=== PATIENT | female | born 1950 | race Caucasian/White ===

== ENCOUNTER 2022-05-23 15:17 | Emergency (ER) | payer OTHER ==
--- OUTSIDE RECORDS SUMMARY | 2022-05-23 16:39 | XMS REPORT | Continuity of Care Document ---
:1950 Author Organization [facility] t Address [address] [place] [address] Care Team Providers Name Role Phone AbdullahiEve Attending Clinician Unavailable Fidencio Riddle Attending Clinician Thomas Alexander Attending Clinician Unavailable Physician, No Primary or Family Admitting Clinician Unavaila [facility] Payers Payer Name Policy Type Policy Number Effective Date Expiration Date S gee [facility] [employer]Select 1 [id number] 2020 Common TRS/ERS MCR PPO 00:00:00 [facility] - [facility] MEDICARE NOVITAS MB [id number] [facility] MEDICARE NOVITAS MB [id number] [facility] MEDICARE NOVITAS MB [id number] [facility] Problems Condition Condition Condition Status Onset Resolution Last Treating Co mments Source Name Details Category Date Date Treatment Clinician Date [id number] Osteopenia Problem Co mmon of neck of Spirit left [facility] [id number] Pure Problem Common hyperchole Spirit sterolemia - [facility] [id number] Alcoholism Problem Comm on [facility] - [facility] [id number] Primary Problem Common osteoarthr Spirit itis of - [facility] hand [id number] Anxiety Problem [facility] - [facility] [id number] Essential Problem Comm on hypertensi Spirit on - [facility] [id number] Glaucoma Problem Commo n of both Spirit eyes, - [facility] unspecifie d glaucoma [facility] [id number] +5th digit Problem Co mmon eff Spirit 04/02/20*GE - [facility] Hyperlipid Problem Active 2021-12-19 M emoria emia Hyperlipid 03:38:06 l (disorder) emia Daniel n (disorder) Active Problem 12/19/2021 [facility] Hypertensi Hypertens Problem Active 2021-12-19 Memoria ve jesusita 03:38:06 l disorder, disorder, Herm gary systemic systemic arterial arterial (disorder) (disorder) Active Problem 12/19/2021 [facility] 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 l 03:38:06 l (disorder) gammopathy He rmann (disorder) Active Problem 12/19/2021 [facility] Paresthesi Paresthes Problem Active 2021-12-19 Memoria a ia 03:38:06 l (finding) (finding) Herm gary Active Problem 12/19/2021 [facility] Peripheral Periphera Problem Active 2021-12-19 Memoria nerve l nerve 03:38:06 l disease disease Donta (disorder) (disorder) Active Problem 12/19/2021 [facility] Allergies, Adverse Reactions, Alerts Allergy Allergy Status Severity Reaction(s) Onset Inactive Treating Comm ents Source Name Type Date Date Clinician No Known DA Active U 2015-07 [facility]04 [place] [facility] No Known DA Active U 2015-07 [facility]ie 07-04 [facility] 00:[facility]: [facility] Social History Social Habit Start Date Stop Date Quantity Comments Source History of Tobacco [facility] - Use [facility] Sex Assigned At [facility] Social History 2019-03-26 2019-03-26 Rogerio ricketts 16:22:59 16:22:59 Smoking Status Start Date Stop Date Source Never Smoker [facility] Medications Ordered Filled Start Stop Current Ordering Indication Dosage Frequency Signature Comments Components Source Medication Medication Date Date Medication? Clinician (SIG) Name Name gabapentin Yes See Memoria 300 mg oral 6-16 Instructio l capsule 16:28: ns, TAKE 1 Herm gary 00 CAPSULE BY MOUTH AT BEDTIME FOR 30 DAYS *MAY IMPAIR ALERTNESS* *, # 30 cap, 11 Refill(s), [facility]: [facility], 167.64, cm, 12/16/21 11:17:00 CDT, Height, 67.273, kg, 12/16/21 11:17:00 CDT, Weight Metoprolol Metoprolol 2020-07 No 1{table QD Metoprolol Succinate Succinate 1-03 t} Succinate ER 25 MG ER 25 MG 00:00: ER 25 MG 00 Metoprolol Metoprolol 2020-07 No 1{table QD Metoprolol Succinate Succinate 1-03 t} Succinate ER 25 MG ER 25 MG 00:00: ER 25 MG 00 Metoprolol Metoprolol 2020-07 No 1{table QD Metoprolol Succinate Succinate 1-03 t} Succinate ER 25 MG ER 25 MG 00:00: ER 25 MG 00 Metoprolol Metoprolol 2020-07 No 1{table QD Metoprolol Succinate Succinate 1-03 t} Succinate ER 25 MG ER 25 MG 00:00: ER 25 MG 00 Depo-Medrol Depo-Medrol 2020-07 No 40mg Common (Methylpred (Methylpred 0-05 S pirit nisolone) nisolone) 00:00: - C HI 40mg 40mg [facility] Bupivicaine Bupivicaine 2020-07 No 2.5mg Common Brule Brule 0-05 Spirit 00:00: - [facility] Depo-Medrol Depo-Medrol 2020-07 No 40mg Common (Methylpred (Methylpred 0-05 S pirit nisolone) nisolone) 00:00: - C HI 40mg 40mg 00 [facility] Bupivicaine Bupivicaine 2020-07 No 2.5mg Common Brule Brule 0-05 Spirit 00:00: - [facility] Depo-Medrol Depo-Medrol 2020-07 No 40mg Common (Methylpred (Methylpred 0-05 S pirit nisolone) nisolone) 00:00: - C HI 40mg 40mg 00 [facility] Bupivicaine Bupivicaine 2020-07 No Common Brule Brule 0-05 Spirit 00:00: - [facility] Depo-Medrol Depo-Medrol 2020-07 No 40mg Common (Methylpred (Methylpred 0-05 S pirit nisolone) nisolone) 00:00: - C HI 40mg 40mg 00 [facility] Bupivicaine Bupivicaine 2020-07 No Common Brule Brule 0-05 Spirit 00:00: - [facility] Depo-Medrol Depo-Medrol 2020-07 No 40mg Common (Methylpred (Methylpred 0-05 S pirit nisolone) nisolone) 00:00: - C HI 40mg 40mg 00 [facility] Bupivicaine Bupivicaine 2020-07 No 2.5mg Common Brule Brule 0-05 Spirit 00:00: - [facility] Depo-Medrol Depo-Medrol 2020-07 No 40mg Common (Methylpred (Methylpred 0-05 S pirit nisolone) nisolone) 00:00: - C HI 40mg 40mg 00 [facility] Bupivicaine Bupivicaine 2020-07 No 2.5mg Common Brule Brule 0-05 Spirit 00:00: - [facility] Lidocaine Lidocaine 2020-0 No 10mg Com 11-05 Spirit 00:00: - [facility] Depo-Medrol Depo-Medrol No 40mg Common (Methylpred (Methylpred 5-06 S pirit nisolone) nisolone) 00:00: - C HI 40mg 40mg 00 [facility] Lidocaine Lidocaine 2020-0 No 10mg Com 11-05 Spirit 00:00: - [facility] Depo-Medrol Depo-Medrol No 40mg Common (Methylpred (Methylpred 5-06 S pirit nisolone) nisolone) 00:00: - C HI 40mg 40mg 00 [facility] Lidocaine Lidocaine 2020-0 No 10mg Com 11-05 Spirit 00:00: - [facility] Depo-Medrol Depo-Medrol 2020-0 No 40mg Common (Methylpred (Methylpred 5-06 S pirit nisolone) nisolone) 00:00: - C HI 40mg 40mg 00 [facility] Lidocaine Lidocaine 2020-0 No 10mg Com 11-05 Spirit 00:00: - [facility] Depo-Medrol Depo-Medrol 2020-0 No 40mg Common (Methylpred (Methylpred 5-06 S pirit nisolone) nisolone) 00:00: - C HI 40mg 40mg 00 [facility] Lidocaine Lidocaine 2020-0 No 10mg Com 11-05 Spirit 00:00: - [facility] Depo-Medrol Depo-Medrol 2020-0 No 40mg Common (Methylpred (Methylpred 5-06 S pirit nisolone) nisolone) 00:00: - C HI 40mg 40mg 00 [facility] Lidocaine Lidocaine 2020-0 No 10mg Com 11-05 Spirit 00:00: - [facility] Depo-Medrol Depo-Medrol 2020-0 No 40mg Common (Methylpred (Methylpred 5-06 S pirit nisolone) nisolone) 00:00: - C HI 40mg 40mg 00 [facility] gabapentin 2018-07 Yes 300 mg = 1 M emoria 300 MG Oral 1-12 cap, PO, l Capsule 15:32: Bedtime, # Herm gary 00 30 cap, 2 Refill(s), Pharmacy: [facility] gabapentin 2018-07 Yes 400 mg = 1 M emoria 400 MG Oral 0-31 cap, PO, l Capsule 22:51: Bedtime, # Herm gary 00 30 cap, 3 Refill(s), Pharmacy: [facility] gabapentin Yes 300 mg = 1 M emoria 300 MG Oral 9-24 cap, PO, l Capsule 16:52: Bedtime, # Herm gary 00 30 cap, 3 Refill(s), [facility]: [facility] venlafaxine 2019- Yes 75 mg = 1 M emoria 75 mg oral 24 cap, PO, l capsule, 16:26: Daily, # Debbie nn extended 00 30 cap, 0 release Refill(s) metoprolol 2019 Yes 25 mg = 1 Me moria 25 mg oral -24 tab, PO, l tablet, 16:26: Daily, # Daniel n extended 00 30 tab, 0 release Refill(s) metoprolol Yes 100 mg = 1 M emoria succinate 03-26 cap, PO, l 100 mg oral 16:26: Daily, 0 He rmann capsule, 00 Refill(s) extended release atorvastati Yes 60 mg, PO, Memoria n 03-26 Daily, 0 l 16:26: Refill(s) telmisartan 2019-0 Yes PO, Daily, Memoria 24 0 l 16:26: Refill(s) Amlodipine Yes 1 tab, PO, M emoria 5 MG / 03-26 Bedtime, # l atorvastati 16:26: 30 tab, 0 H ermann n 10 MG 00 Refill(s) Oral Tablet multivitami 2018-0 Yes Daily, 0 Me moria n 03-26 Refill(s) l 16:26: Cod Liver 2019-0 Yes PO, Daily, Me moria Oil 03-26 0 l 16:26: Refill(s) B-12 0 Yes 0 Memoria 03-26 Refill(s) l 16:26: Calcium 2019-0 Yes 1 tab, PO, [place] yohannes Carbonate 03-26 TID, # 90 l 1500 MG / 16:26: tab, 0 Daniel n Cholecalcif 00 Refill(s) angel 200 UNT Oral Tablet cinnamon 0 Yes 1,000 mg = Mem oria 500 mg oral 03-26 2 cap, PO, l capsule 16:26: BID, # 100 Herm gary 00 cap, 0 Refill(s) magnesium 2019-0 Yes PO, 0 Memoria amino acid 03-26 Refill(s) l chelate 16:26: Donta 00 omeprazole 2019- Yes 40 mg = 1 Me moria 40 mg oral 9-24 cap, PO, l delayed 16:26: Daily, # Daniel n release 00 30 cap, 0 capsule Refill(s) Travatan Z Travatan Z No 1{drop_ QD Travatan Z 0.004 % 0.004 % into_af 0.004 % fected_ eye_in_ the_eve monica} Metoprolol Metoprolol No Metoprolol Succinate Succinate Succinate ER 25 MG ER 25 MG ER 25 MG Famotidine Famotidine No Famotidine Famotidine Famotidine No Famotidine Telmisartan Telmisartan No 1{table QD Telmisarta -HCTZ -HCTZ t} n-HCTZ 40-12.5 MG 40-12.5 MG 40-12.5 MG Magnesium Magnesium No 1{capsu TID Magnesium 100 MG 100 MG le} 100 MG Gabapentin Gabapentin No 1{capsu Gabapentin 300 MG 300 MG le} 300 MG Atorvastati Atorvastati No Atorvastat n Calcium n Calcium in Calcium 40 MG 40 MG 40 MG Metoprolol Metoprolol No Metoprolol Succinate Succinate Succinate ER 25 MG ER 25 MG ER 25 MG amLODIPine amLODIPine No 1{table QD amLODIPine Besylate 5 Besylate 5 t} Besylate 5 MG MG MG Potassium Potassium No 1{table QD Potassium 99 MG 99 MG t} 99 MG Travatan Z Travatan Z No 1{drop_ QD Travatan Z 0.004 % 0.004 % into_af 0.004 % fected_ eye_in_ the_eve mon[place]} Meloxicam Meloxicam No Meloxicam Voltaren Voltaren No Voltaren Venlafaxine Venlafaxine No 1{capsu QD Venlafaxin HCl ER 75 HCl ER 75 le_with e HCl ER MG MG _food} 75 MG Omeprazole Omeprazole No QD Omeprazole 40 MG 40 MG 40 MG Telmisartan Telmisartan No 1{table QD Telmisarta -HCTZ -HCTZ t} n-HCTZ 40-12.5 MG 40-12.5 MG 40-12.5 MG Atorvastati Atorvastati No Atorvastat n Calcium n Calcium in Calcium 40 MG 40 MG 40 MG amLODIPine amLODIPine No amLODIPine Besylate 5 Besylate 5 Besylate 5 MG MG MG Voltaren Voltaren No Voltaren Famotidine Famotidine No Famotidine Magnesium Magnesium No 1{capsu TID Magnesium 100 MG 100 MG le} 100 MG Potassium Potassium No 1{table QD Potassium 99 MG 99 MG t} 99 MG Omeprazole Omeprazole No QD Omeprazole 40 MG 40 MG 40 MG Travatan Z Travatan Z No 1{drop_ QD Travatan Z 0.004 % 0.004 % into_af 0.004 % fected_ eye_in_ the_eve [place]} Gabapentin Gabapentin No 1{capsu Gabapentin 300 MG 300 MG le} 300 MG Meloxicam Meloxicam No Meloxicam Metoprolol Metoprolol No 1{table QD Metoprolol Succinate Succinate t} Succinate ER 100 MG ER 100 MG ER 100 MG Venlafaxine Venlafaxine No 1{capsu QD Venlafaxin HCl ER 75 HCl ER 75 le_with e HCl ER MG MG _food} 75 MG Telmisartan Telmisartan No 1{table QD Telmisarta -HCTZ -HCTZ t} n-HCTZ 40-12.5 MG 40-12.5 MG 40-12.5 MG Voltaren Voltaren No Voltaren Famotidine Famotidine No Famotidine amLODIPine amLODIPine No amLODIPine Besylate 5 Besylate 5 Besylate 5 MG MG MG Meloxicam Meloxicam No Meloxicam Magnesium Magnesium No 1{capsu TID Magnesium 100 MG 100 MG le} 100 MG Potassium Potassium No 1{table QD Potassium 99 MG 99 MG t} 99 MG Omeprazole Omeprazole No QD Omeprazole 40 MG 40 MG 40 MG Gabapentin Gabapentin No 1{capsu Gabapentin 300 MG 300 MG le} 300 MG Atorvastati Atorvastati No Atorvastat n Calcium n Calcium in Calcium 20 MG 20 MG 20 MG Venlafaxine Venlafaxine No Venlafaxin HCl ER 75 HCl ER 75 e HCl ER MG MG 75 MG Metoprolol Metoprolol No 1{table QD Metoprolol Succinate Succinate t} Succinate ER 100 MG ER 100 MG ER 100 MG Travatan Z Travatan Z No 1{drop_ QD Travatan Z 0.004 % 0.004 % into_af 0.004 % fected_ eye_in_ the_eve mon[place]} Telmisartan Telmisartan No 1{table QD Telmisarta -HCTZ -HCTZ t} n-HCTZ 40-12.5 MG 40-12.5 MG 40-12.5 MG Famotidine Famotidine No Famotidine Meloxicam Meloxicam No Meloxicam Atorvastati Atorvastati No Atorvastat n Calcium n Calcium in Calcium 40 MG 40 MG 40 MG amLODIPine amLODIPine No amLODIPine Besylate 5 Besylate 5 Besylate 5 MG MG MG Magnesium Magnesium No 1{capsu TID Magnesium 100 MG 100 MG le} 100 MG Potassium Potassium No 1{table QD Potassium 99 MG 99 MG t} 99 MG Voltaren Voltaren No Voltaren Travatan Z Travatan Z No 1{drop_ QD Travatan Z 0.004 % 0.004 % into_af 0.004 % fected_ eye_in_ the_eve [place]} Gabapentin Gabapentin No 1{capsu Gabapentin 300 MG 300 MG le} 300 MG Venlafaxine Venlafaxine No Venlafaxin HCl ER 75 HCl ER 75 e HCl ER MG MG 75 MG Omeprazole Omeprazole No QD Omeprazole 40 MG 40 MG 40 MG Metoprolol Metoprolol No Metoprolol Succinate Succinate Succinate ER 100 MG ER 100 MG ER 100 MG amLODIPine amLODIPine No amLODIPine Besylate 5 Besylate 5 Besylate 5 MG MG MG Famotidine Famotidine No Famotidine Venlafaxine Venlafaxine No Venlafaxin HCl ER 75 HCl ER 75 e HCl ER MG MG 75 MG Gabapentin Gabapentin No 1{capsu Gabapentin 300 MG 300 MG le} 300 MG Atorvastati Atorvastati No Atorvastat n Calcium n Calcium in Calcium 40 MG 40 MG 40 MG Potassium Potassium No 1{table QD Potassium 99 MG 99 MG t} 99 MG Meloxicam Meloxicam No Meloxicam Omeprazole Omeprazole No QD Omeprazole 40 MG 40 MG 40 MG Metoprolol Metoprolol No Metoprolol Succinate Succinate Succinate ER 100 MG ER 100 MG ER 100 MG Telmisartan Telmisartan No 1{table QD Telmisarta -HCTZ -HCTZ t} n-HCTZ 40-12.5 MG 40-12.5 MG 40-12.5 MG Voltaren Voltaren No Voltaren Magnesium Magnesium No 1{capsu TID Magnesium 100 MG 100 MG le} 100 MG Travatan Z Travatan Z No 1{drop_ QD Travatan Z 0.004 % 0.004 % into_af 0.004 % fected_ eye_in_ the_eve [place]} Atorvastati Atorvastati No 1{table QD Atorvastat n Calcium n Calcium t} in Calcium 20 MG 20 MG 20 MG Venlafaxine Venlafaxine No Venlafaxin HCl ER 75 HCl ER 75 e HCl ER MG MG 75 MG Gabapentin Gabapentin No 1{capsu Gabapentin 300 MG 300 MG le} 300 MG Meloxicam Meloxicam No Meloxicam Atorvastati Atorvastati No Atorvastat n Calcium n Calcium in Calcium 20 MG 20 MG 20 MG Famotidine Famotidine No Famotidine Telmisartan Telmisartan No 1{table QD Telmisarta -HCTZ -HCTZ t} n-HCTZ 40-12.5 MG 40-12.5 MG 40-12.5 MG Travatan Z Travatan Z No 1{drop_ QD Travatan Z 0.004 % 0.004 % into_af 0.004 % fected_ eye_in_ the_eve [place]} Metoprolol Metoprolol No Metoprolol Succinate Succinate Succinate ER 100 MG ER 100 MG ER 100 MG Omeprazole Omeprazole No QD Omeprazole 40 MG 40 MG 40 MG Atorvastati Atorvastati No 1{table QD Atorvastat n Calcium n Calcium t} in Calcium 40 MG 40 MG 40 MG Potassium Potassium No 1{table QD Potassium 99 MG 99 MG t} 99 MG Magnesium Magnesium No 1{capsu TID Magnesium 100 MG 100 MG le} 100 MG amLODIPine amLODIPine No 1{table QD amLODIPine Besylate 5 Besylate 5 t} Besylate 5 MG MG MG Voltaren Voltaren No Voltaren Meloxicam Meloxicam No 1{table QD Meloxicam 7.5 MG 7.5 MG t} 7.5 MG Venlafaxine Venlafaxine No Venlafaxin HCl ER 75 HCl ER 75 e HCl ER MG MG 75 MG Gabapentin Gabapentin No 1{capsu Gabapentin 300 MG 300 MG le} 300 MG Meloxicam Meloxicam No Meloxicam Atorvastati Atorvastati No Atorvastat n Calcium n Calcium in Calcium 20 MG 20 MG 20 MG Famotidine Famotidine No Famotidine Telmisartan Telmisartan No 1{table QD Telmisarta -HCTZ -HCTZ t} n-HCTZ 40-12.5 MG 40-12.5 MG 40-12.5 MG Travatan Z Travatan Z No 1{drop_ QD Travatan Z 0.004 % 0.004 % into_af 0.004 % fected_ eye_in_ the_eve [place]} Metoprolol Metoprolol No Metoprolol Succinate Succinate Succinate ER 100 MG ER 100 MG ER 100 MG Omeprazole Omeprazole No QD Omeprazole 40 MG 40 MG 40 MG Atorvastati Atorvastati No 1{table QD Atorvastat n Calcium n Calcium t} in Calcium 40 MG 40 MG 40 MG Potassium Potassium No 1{table QD Potassium 99 MG 99 MG t} 99 MG Magnesium Magnesium No 1{capsu TID Magnesium 100 MG 100 MG le} 100 MG amLODIPine amLODIPine No 1{table QD amLODIPine Besylate 5 Besylate 5 t} Besylate 5 MG MG MG Voltaren Voltaren No Voltaren Travatan Z Travatan Z No 1{drop_ QD Travatan Z 0.004 % 0.004 % into_af 0.004 % fected_ eye_in_ the_eve [place]} Meloxicam Meloxicam No Meloxicam Potassium Potassium No 1{table QD Potassium 99 MG 99 MG t} 99 MG Atorvastati Atorvastati No 1{table QD Atorvastat n Calcium n Calcium t} in Calcium 40 MG 40 MG 40 MG Meloxicam Meloxicam No 1{table QD Meloxicam 7.5 MG 7.5 MG t} 7.5 MG amLODIPine amLODIPine No 1{table QD amLODIPine Besylate 5 Besylate 5 t} Besylate 5 MG MG MG Venlafaxine Venlafaxine No Venlafaxin HCl ER 75 HCl ER 75 e HCl ER MG MG 75 MG Famotidine Famotidine No Famotidine Magnesium Magnesium No 1{capsu TID Magnesium 100 MG 100 MG le} 100 MG Telmisartan Telmisartan No 1{table QD Telmisarta -HCTZ -HCTZ t} n-HCTZ 40-12.5 MG 40-12.5 MG 40-12.5 MG Voltaren Voltaren No Voltaren Metoprolol Metoprolol No Metoprolol Succinate Succinate Succinate ER 100 MG ER 100 MG ER 100 MG Atorvastati Atorvastati No Atorvastat n Calcium n Calcium in Calcium 20 MG 20 MG 20 MG Gabapentin Gabapentin No 1{capsu Gabapentin 300 MG 300 MG le} 300 MG Omeprazole Omeprazole No QD Omeprazole 40 MG 40 MG 40 MG Travatan Z Travatan Z No 1{drop_ QD Travatan Z 0.004 % 0.004 % into_af 0.004 % fected_ eye_in_ the_eve [place]} Meloxicam Meloxicam No Meloxicam Potassium Potassium No 1{table QD Potassium 99 MG 99 MG t} 99 MG Atorvastati Atorvastati No 1{table QD Atorvastat n Calcium n Calcium t} in Calcium 40 MG 40 MG 40 MG Meloxicam Meloxicam No 1{table QD Meloxicam 7.5 MG 7.5 MG t} 7.5 MG amLODIPine amLODIPine No 1{table QD amLODIPine Besylate 5 Besylate 5 t} Besylate 5 MG MG MG Venlafaxine Venlafaxine No Venlafaxin HCl ER 75 HCl ER 75 e HCl ER MG MG 75 MG Famotidine Famotidine No Famotidine Magnesium Magnesium No 1{capsu TID Magnesium 100 MG 100 MG le} 100 MG Telmisartan Telmisartan No 1{table QD Telmisarta -HCTZ -HCTZ t} n-HCTZ 40-12.5 MG 40-12.5 MG 40-12.5 MG Voltaren Voltaren No Voltaren Metoprolol Metoprolol No Metoprolol Succinate Succinate Succinate ER 100 MG ER 100 MG ER 100 MG Atorvastati Atorvastati No Atorvastat n Calcium n Calcium in Calcium 20 MG 20 MG 20 MG Gabapentin Gabapentin No 1{capsu Gabapentin 300 MG 300 MG le} 300 MG Omeprazole Omeprazole No QD Omeprazole 40 MG 40 MG 40 MG Gabapentin Gabapentin No 1{capsu Gabapentin 300 MG 300 MG le} 300 MG Potassium Potassium No 1{table QD Potassium 99 MG 99 MG t} 99 MG Meloxicam Meloxicam No Meloxicam amLODIPine amLODIPine No 1{table QD amLODIPine Besylate 5 Besylate 5 t} Besylate 5 MG MG MG Omeprazole Omeprazole No QD Omeprazole 40 MG 40 MG 40 MG Telmisartan Telmisartan No 1{table QD Telmisarta -HCTZ -HCTZ t} n-HCTZ 40-12.5 MG 40-12.5 MG 40-12.5 MG Magnesium Magnesium No 1{capsu TID Magnesium 100 MG 100 MG le} 100 MG Venlafaxine Venlafaxine No 1{capsu QD Venlafaxin HCl ER 75 HCl ER 75 le_with e HCl ER MG MG _food} 75 MG Atorvastati Atorvastati No Atorvastat n Calcium n Calcium in Calcium 40 MG 40 MG 40 MG Immunizations Ordered Immunization Filled Immunization Date Status Commen ts Source Name Name FLUZONE HIGH DOSE FLUZONE HIGH DOSE 2022-04-01 Completed [facility] - OVER 65 OVER 65 10:39:00 [facility] FLUZONE HIGH DOSE FLUZONE HIGH DOSE 2022-04-01 Completed [facility] - OVER 65 OVER 65 10:39:00 [facility] Bupivicaine Brule Bupivicaine Brule 2021-04-06 Completed [facility] - 11:49:00 [facility] Depo-Medrol Depo-Medrol 2021-04-06 Completed [facility] - (Methylprednisolone) (Methylprednisolone) 11:45:00 [facility] 40mg 40mg [facility] Lidocaine Lidocaine 2020-11-05 Completed [facility] - 10:29:00 [facility] Lidocaine Lidocaine 2020-11-05 Completed [facility] - 10:29:00 [facility] Depo-Medrol Depo-Medrol 2020-11-05 Completed [facility] - (Methylprednisolone) (Methylprednisolone) 10:28:00 [facility] 40mg 40mg [facility] Depo-Medrol Depo-Medrol 2020-11-05 Completed [facility] - (Methylprednisolone) (Methylprednisolone) 10:28:00 [facility] 40mg 40mg [facility] Moderna COVID-19 Moderna COVID-19 2020-10-01 Completed [facility] - Vaccine Vaccine 14:16[facility]00 [facility] Moderna COVID-19 2020-10-01 Completed [facility] - Vaccine Vaccine 14:16:00 [facility] Moderna COVID-19 Moderna COVID-19 2020-10-01 Completed [facility] - Vaccine Vaccine 14:16:00 [facility] Moderna COVID-19 Moderna COVID-19 2020-10-01 Completed [facility] - Vaccine Vaccine 14:16:00 [facility] Moderna COVID-19 Moderna COVID-19 2020-10-01 Completed [facility] - Vaccine Vaccine 14:16:00 [facility] Moderna COVID-19 Moderna COVID-19 2020-10-01 Completed [facility] - Vaccine Vaccine 14:16:00 [facility] Moderna COVID-19 Moderna COVID-19 2020-10-01 Completed [facility] - Vaccine Vaccine 14:16:00 [facility] Moderna COVID-19 Moderna COVID-19 2020-10-01 Completed [facility] - Vaccine Vaccine 14:16:00 [facility] Moderna COVID-19 Moderna COVID-19 2020-10-01 Completed [facility] - Vaccine Vaccine 14:16:00 [facility] Moderna COVID-19 Moderna COVID-19 2020-10-01 Completed [facility] - Vaccine Vaccine 14:16:00 [facility] [id number] 2020-10-01 Completed [place] ria [id number] 00:00:00 [place] Moderna COVID-19 Moderna COVID-19 2020-09-02 Completed [facility] - Vaccine Vaccine 10:16:00 [facility] Moderna COVID-19 Moderna COVID-19 2020-09-02 Completed [facility] - Vaccine Vaccine 10:16:00 [facility] Moderna COVID-19 Moderna COVID-19 2020-09-02 Completed [facility] - Vaccine Vaccine 10:16:00 [facility] Moderna COVID-19 Moderna COVID-19 2020-09-02 Completed [facility] - Vaccine Vaccine 10:16:00 [facility] Moderna COVID-19 Moderna COVID-19 2020-09-02 Completed [facility] - Vaccine Vaccine 10:16:00 [facility] Moderna COVID-19 Moderna COVID-19 2020-09-02 Completed [facility] - Vaccine Vaccine 10:16:00 [facility] Moderna COVID-19 Moderna COVID-19 2020-09-02 Completed [facility] - Vaccine Vaccine 10:16:00 [facility] Moderna COVID-19 Moderna COVID-19 2020-09-02 Completed [facility] - Vaccine Vaccine 10:16:00 [facility] Moderna COVID-19 Moderna COVID-19 2020-09-02 Completed [facility] - Vaccine Vaccine 10:16:00 [facility] Moderna COVID-19 Moderna COVID-19 2020-09-02 Completed [facility] - Vaccine Vaccine 10:16:00 [facility] [id number] 2020-09-02 Completed [place] ria [id number] 00:00:00 [facility] Prevnar 13 (PCV13) Prevnar 13 (PCV13) 2020-06-02 [facility]pleted [facility] 14:17:00 [facility] Prevnar 13 (PCV13) Prevnar 13 (PCV13) 2020-06-02 Completed [facility] 14:17:00 [facility] Prevnar 13 (PCV13) Prevnar 13 (PCV13) 2020-06-02 Completed [facility] - 14:17:00 [facility] Prevnar 13 (PCV13) Prevnar 13 (PCV13) 2020-06-02 Completed [facility] 14:17:00 [facility] Prevnar 13 (PCV13) Prevnar 13 (PCV13) 2020-06-02 Completed [facility] 14:17:00 [facility] Prevnar 13 (PCV13) Prevnar 13 (PCV13) 2020-06-02 Completed [facility] 14:17:00 [facility] Prevnar 13 (PCV13) Prevnar 13 (PCV13) 2020-06-02 Completed [facility] 14:17:00 [facility] Prevnar 13 (PCV13) Prevnar 13 (PCV13) 2020-06-02 [facility]pleted [facility] 14:17:00 [facility] Prevnar 13 (PCV13) Prevnar 13 (PCV13) 2020-06-02 Completed [facility] - 14:17:00 [facility] Prevnar 13 (PCV13) Prevnar 13 (PCV13) 2020-06-02 Completed [facility] - 14:17:00 [facility] Fluzone Fluzone 2020-06-02 Completed [facility] - 14:16:00 [facility] Fluzone Fluzone 2020-06-02 Completed [facility] Fluzone Fluzone 2020-06-02 Completed [facility] Fluzone Fluzone 2020-06-02 Completed [facility] Fluzone Fluzone 2020-06-02 Completed [facility] Fluzone Fluzone 2020-06-02 Completed [facility] Fluzone Fluzone 2020-06-02 Completed [facility]00 [facility] Fluzone Fluzone 2020-06-02 Completed [facility] Fluzone Fluzone 2020-06-02 Completed [facility]00 [facility] Fluzone Fluzone 2020-06-02 Completed [facility] FLUZONE HIGH DOSE FLUZONE HIGH DOSE 2019-06-03 Completed [facility] - OVER 65 OVER 65 14:36:00 [facility] FLUZONE HIGH DOSE FLUZONE HIGH DOSE 2019-06-03 Completed [facility] - OVER 65 OVER 65 14:36:00 [facility] FLUZONE HIGH DOSE FLUZONE HIGH DOSE 2019-06-03 Completed [facility] - OVER 65 OVER 65 14:36:00 [facility] FLUZONE HIGH DOSE FLUZONE HIGH DOSE 2019-06-03 Completed [facility] - OVER 65 OVER 65 14:36:00 [facility] FLUZONE HIGH DOSE FLUZONE HIGH DOSE 2019-06-03 Completed [facility] - OVER 65 OVER 65 14:36:00 [facility] FLUZONE HIGH DOSE FLUZONE HIGH DOSE 2019-06-03 Completed [facility] - OVER 65 OVER 65 14:36:00 [facility] FLUZONE HIGH DOSE FLUZONE HIGH DOSE 2019-06-03 Completed [facility] - OVER 65 OVER 65 14:36:00 [facility] FLUZONE HIGH DOSE FLUZONE HIGH DOSE 2019-06-03 Completed [facility] - OVER 65 OVER 65 14:36:00 [facility] FLUZONE HIGH DOSE FLUZONE HIGH DOSE 2019-06-03 Completed [facility] - OVER 65 OVER 65 14:36:00 [facility] FLUZONE HIGH DOSE FLUZONE HIGH DOSE 2019-06-03 Completed [facility] - OVER 65 OVER 65 14:36:00 [facility] Pneumovax (PPSV23) Pneumovax (PPSV23) 2019-05-16 Completed [facility]00 [facility] Pneumovax (PPSV23) Pneumovax (PPSV23) 2019-05-16 Completed [facility]00 [facility] Pneumovax (PPSV23) Pneumovax (PPSV23) 2019-05-16 Completed [facility]00 [facility] Pneumovax (PPSV23) Pneumovax (PPSV23) 2019-05-16 Completed [facility]00 [facility] Pneumovax (PPSV23) Pneumovax (PPSV23) 2019-05-16 Completed [facility]00 [facility] Pneumovax (PPSV23) Pneumovax (PPSV23) 2019-05-16 Completed [facility]00 [facility] Pneumovax (PPSV23) Pneumovax (PPSV23) 2019-05-16 Completed [facility]00 [facility] Pneumovax (PPSV23) Pneumovax (PPSV23) 2019-05-16 Completed [facility]00 [facility] Pneumovax (PPSV23) Pneumovax (PPSV23) 2019-05-16 Completed [facility]00 [facility] Pneumovax (PPSV23) Pneumovax (PPSV23) 2019-05-16 Completed [facility] Shingrix Shingrix 2013-03-05 Completed [facility] 14:38:00 [facility] Shingrix Shingrix 2013-03-05 Completed [facility] 14:38:00 [facility] Shingrix Shingrix 2013-03-05 Completed [facility] 14:38:00 [facility] Shingrix Shingrix 2013-03-05 Completed [facility] 14:38:00 [facility] Shingrix Shingrix 2013-03-05 Completed [facility] 14:38:00 [facility] Shingrix Shingrix 2013-03-05 Completed [facility] 14:38:00 [facility] Shingrix Shingrix 2013-03-05 Completed [facility] 14:38:00 [facility] Shingrix Shingrix 2013-03-05 Completed [facility] 14:[facility]:00 [facility] Shingrix Shingrix 2013-03-05 Completed [facility] 14:[facility]:00 [facility] Shingrix Shingrix 2013-03-05 Completed [facility]00 [facility] Vital Signs Vital Name Observation Time Observation Value Comments Source height 2022-04-01 10:20:00 66 [in_i] [facility] weight 2022-04-01 10:20:00 149.6 [lb_av] [facility] temperature 2022-04-01 10:20:00 98.6 [degF] [facility] bmi 2022-04-01 10:20:00 24.14 kg/m2 [facility] oximetry 2022-04-01 10:20:00 96 % [facility] respiratory rate 2022-04-01 10:20:00 16 /min [facility] blood pressure 2022-04-01 10:20:00 132 mm[Hg] [facility] systolic [facility] blood pressure 2022-04-01 10:20:00 79 mm[Hg] [facility] diastolic [facility] height 2022-02-15 09:30:00 66 [in_i] [facility] weight 2022-02-15 09:30:00 150 [lb_av] [facility] bmi 2022-02-15 09:30:00 24.21 kg/m2 [facility] blood pressure 2022-02-15 09:30:00 138 mm[Hg] [facility] - systolic [facility] blood pressure 2022-02-15 09:30:00 84 mm[Hg] [facility] diastolic [facility] height 2021-09-21 08:40:00 66 [in_i] [facility] weight 2021-09-21 08:40:00 152 [lb_av] [facility] temperature 2021-09-21 08:40:00 98.2 [degF] [facility] bmi 2021-09-21 08:40:00 24.53 kg/m2 [facility] oximetry 2021-09-21 08:40:00 96 % [facility] respiratory rate 2021-09-21 08:40:00 16 /min Comm [facility] - [facility] blood pressure 2021-09-21 08:40:00 129 mm[Hg] [facility] - systolic [facility] blood pressure 2021-09-21 08:40:00 66 mm[Hg] [facility] diastolic [facility] height 2021-04-06 10:45:00 66 [in_i] [facility] weight 2021-04-06 10:45:00 151.5 [lb_av] [facility] temperature 2021-04-06 10:45:00 97.5 [degF] [facility] bmi 2021-04-06 10:45:00 24.45 kg/m2 [facility] blood pressure 2021-04-06 10:45:00 132 mm[Hg] Common [facility] - systolic [facility] blood pressure 2021-04-06 10:45:00 84 mm[Hg] [facility] - diastolic [facility] height 2021-03-24 13:00:00 66 [in_i] [facility] weight 2021-03-24 13:00:00 150.0 [lb_av] [facility] temperature 2021-03-24 13:00:00 97.3 [degF] [facility] bmi 2021-03-24 13:00:00 24.21 kg/m2 [facility] oximetry 2021-03-24 13:00:00 96 % [facility] respiratory rate 2021-03-24 13:00:00 18 /min [facility] blood pressure 2021-03-24 13:00:00 138 mm[Hg] Common [facility] - systolic [facility] blood pressure 2021-03-24 13:00:00 88 mm[Hg] Common [facility] - diastolic [facility] Systolic (mm Hg) 2021-12-16 16:07:00 [place] [facility] Diastolic (mm Hg) 2021-12-16 16:07:00 [facility] Heart Rate 2021-12-16 16:07:00 [facility] Respitory Rate 2021-12-16 16:07:00 [facility] Height 2021-12-16 16:07:00 167.64 cm [facility] Weight 2021-12-16 16:07:00 [facility] BMI Calculated 2021-12-16 16:07:00 [facility] Systolic (mm Hg) 2019-12-19 15:21:00 [place] [facility] Diastolic (mm Hg) 2019-12-19 15:21:00 [facility] [place] Heart Rate 2019-12-19 15:21:00 [facility] Respitory Rate 2019-12-19 15:21:00 [facility] Height 2019-12-19 15:21:00 170.18 cm [facility] Weight 2019-12-19 15:21:00 [facility] BMI Calculated 2019-12-19 15:21:00 [facility] Temperature Oral (F) 2019-12-19 15:21:00 97.3 F [facility] Systolic (mm Hg) 2019-06-13 15:53:00 [place] [facility] [place] Diastolic (mm Hg) 2019-06-13 15:53:00 [facility] [place] Heart Rate 2019-06-13 15:53:00 [facility] Respitory Rate 2019-06-13 15:53:00 [facility] Height 2019-06-13 15:53:00 170.18 cm [facility] Weight 2019-06-13 15:53:00 [facility] BMI Calculated 2019-06-13 15:53:00 [facility] Systolic (mm Hg) 2019-05-02 18:39:00 [place] [facility] [place] Diastolic (mm Hg) 2019-05-02 18:39:00 [facility] [place] Heart Rate 2019-05-02 18:39:00 [facility] Respitory Rate 2019-05-02 18:39:00 [facility] [place] Height 2019-05-02 18:39:00 167.64 cm [facility] Weight 2019-05-02 18:39:00 [facility] BMI Calculated 2019-05-02 18:39:00 [facility] [place] Systolic (mm Hg) 2019-03-26 16:20:00 [place] [facility] [place] Diastolic (mm Hg) 2019-03-26 16:20:00 [facility] [place] Heart Rate 2019-03-26 16:20:00 [facility] Respitory Rate 2019-03-26 16:20:00 [facility] Height 2019-03-26 16:20:00 170.18 cm [facility] Weight 2019-03-26 16:20:00 [facility] BMI Calculated 2019-03-26 16:20:00 [facility] Procedures Procedure Date / Time Performed Performing Clinician Sourc e Removal of supernumerary [facility]oria [facility] [place] toe Encounters Start End Encounter Admission Attending Care Care Encounter Source Date/Time Date/Time Type Type Clinicians Facility Department ID 2022-03-30 Outpatient Abdullahi [facility] STLC [id number] Common 07:53:00 Eve [facility] 2022-02-15 Outpatient Abdullahi [facility] STLMLC [id number] Common 10:48:01 Eve [facility] 2022-01-28 Outpatient [place], STSOFÍALC STLMLC [id number] Common 10:53:01 Eve [facility] 2021-11-26 Outpatient Abdullahi STSOFÍALC STLMLC [id number] Common 08:38:02 Eve [facility] 2021-09-17 Outpatient [place], STSOFÍALC STLMLC [id number] Common 08:07:00 Eve [facility] 2021-07-30 Outpatient [place], STSOFÍALC STLMLC [id number] Common 13:05:01 Eve [facility] 2021-07-28 Outpatient Abdullahi STLMLC STLMLC [id number] Common 14:20:38 Eve [id number] [facility] 2021-07-28 Outpatient [place], STLMLC STLMLC [id number] Common 13:52:48 Eve [id number] [facility] 2021-07-28 Outpatient [place], STLMLC STLMLC [id number] Common 13:52:11 Eve 70089 [facility] 2021-07-28 Outpatient [place], STLMLC STLMLC [id number] Common 13:51:23 Eve [id number] [facility] 2021-07-28 Outpatient [place], STLMLC STLMLC [id number] Common 13:00:09 Eve [id number] [facility] 2021-07-28 Outpatient [place], STLMLC STLMLC [id number] Common 12:46:24 Eve 76304 [facility] 2021-07-28 Outpatient Abdullahi, STLMLC STLMLC [id number] Common 12:12:04 Eve [id number] [facility] 2021-07-28 Outpatient STLMLC STLMLC [id number] Common 11:44:26 [id number] [facility] 2022-12-15 2022-12-15 Outpatient MHIE MHIE [id number] Memoria 11:00:00 11:00:00 07 faby Longo 2022-04-01 2022-04-01 SUB ANNUAL STLMLC STLMLC [id number] [facility] 00:00:00 00:00:00 MCR [facility] WELLNESS - CHI VISIT [facility] 2022-03-09 2022-03-09 Outpatient AOSM AOSM [id number] [place] 00:00:00 00:00:00 [id number] [facility] 2022-02-16 2022-02-16 (TEL) STLMLC STLMLC [id number] Co mmon 00:00:00 00:00:00 [facility] 2022-02-15 2022-02-15 OFFICE STLMLC STLMLC [id number] Co mmon 00:00:00 00:00:00 VISIT [facility] ESTAB PT - CHI LEVEL 4 [facility] 2021-12-16 2021-12-17 Outpatient nullFlavo MNA [id number] Memoria 16:00:00 04:59:59 r Neurology 06 faby Longo 2021-12-16 2021-12-16 Outpatient GINA RiddleSCHERMA MISCHER [id number] 11:00:00 23:59:59 Fidencio 06 Al 2021-12-16 2021-12-16 Outpatient MHIE MHIE [id number] Memoria 11:00:00 11:00:00 06 faby Longo 2021-09-21 2021-09-21 OFFICE STLMLC STLMLC [id number] Co mmon 00:00:00 00:00:00 [facility] ESTAB PT - CHI LEVEL 4 [facility] 2021-09-14 2021-09-14 (TEL) STLMLC STLMLC [id number] Co mmon 00:00:00 00:00:00 [facility] 2021-07-06 2021-07-06 (TEL) STLMLC STLMLC [id number] Co mmon 00:00:00 00:00:00 [facility] 2021-05-04 2021-05-04 (TEL) STLMLC STLMLC [id number] Co mmon 00:00:00 00:00:00 [facility] 2021-04-06 2021-04-06 OFFICE STLMLC STLMLC [id number] Co mmon 00:00:00 00:00:00 VISIT EST Spir it PT LEVEL 3 - [facility] 2021-03-24 2021-03-24 Outpatient STLMLC STLMLC [id number] Common 00:00:00 00:00:00 [facility] 2021-03-24 2021-03-24 SUB ANNUAL STLMLC STLMLC [id number] [facility] 00:00:00 00:00:00 [facility] VISIT [facility] 2020-12-17 2020-12-17 Ambulatory nullFlavo MNA [id number] Memoria 15:15:00 15:15:00 Pre-Reg r Neurology 04 l Trisha Longo 2020-12-17 2020-12-17 Outpatient MHIE MHIE [id number] Memoria 10:15:00 10:15:00 04 faby Longo 2020-12-17 2020-12-17 Outpatient MHIE MHIE [id number] Memoria 10:15:00 10:15:00 05 fayb Longo 2020-12-17 2020-12-17 Outpatient MARCELLE RiddleSCHER [id number] 10:15:00 10:15:00 Fidencio 04 Al 2020-02-13 2020-02-13 Outpatient Benjamin HCATO SAHARA [id number] [facility] 12:45:00 12:45:00 [facility] 2019-12-19 2019-12-20 Outpatient nullFlavo MNA [id number] Memoria 15:15:00 04:59:59 r Neurology 03 l Trisha Longo 2019-12-19 2019-12-19 Outpatient GINA RiddleSCHER MHMISCHER [id number] 10:15:00 23:59:59 Fidencio 03 Al 2019-12-19 2019-12-19 Outpatient MHIE MHIE [id number] Memoria 10:15:00 10:15:00 03 faby Longo 2019-06-13 2019-06-14 Outpatient nullFlavo MNA [id number] Memoria 15:45:00 05:59:59 r Neurology 02 faby Longo 2019-06-13 2019-06-13 [id number] 09:45:00 23:59:59 Fidencio 02 Al 2019-06-13 2019-06-13 Outpatient MHIE MHIE [id number] Memoria 09:45:00 09:45:00 02 faby Longo 2019-05-02 2019-05-03 Outpatient nullFlavo MNA [id number] Memoria 18:45:00 04:59:59 r Neurology 01 faby Villagranann 2019-05-02 2019-05-02 [id number] 13:45:00 23:59:59 Fidencio Al 2019-05-02 2019-05-02 Outpatient MHIE MHIE [id number] Memoria 13:45:00 13:45:00 01 faby Longo 2019-03-26 2019-03-27 Outpatient nullFlavo MNA [id number] Memoria 16:30:00 04:59:59 r Neurology 00 faby Longo 2019-03-26 2019-03-26 Outpatient MARCELLE Riddle MISCHER [id number] 11:30:00 23:59:59 Fidencio 00 Al Results Test Description Test Time Test Comments Results Result [facility] e Comments - XR FLUORO FOR 2020-02-13 Patient Name: SPINE INJ 17:34:00 NICKYLUNA TUTU Unit No: [id number] EXAMS: CPT CODE: [id number] XR FLUORO FOR SPINE INJ 95194 CERVICAL FACET DIAGNOSTIC INJECTION REFERRAL PHYSICIAN: Stefania Ceballos M.D. Preoperative diagnosis: Cervical spondylosis without myelopathy or radiculopathy Postoperative diagnosis: Cervical spondylosis without myelopathy or radiculopathy Procedure performed: Fluoroscopically guided needle localization of the bilateral C4-5 facets with arthrograms and diagnostic injection of local anesthetic and steroid. Findings:Preoperatively the patient complained of similar pain in the neck bilaterally greater on the left. The left C4-5 facet was thus included. The left C4-5 shows moderate capsular degeneration with lateral joint osteophytosis and moderate joint hypertrophy. The right C4-5 facet shows mild capsular degeneration without joint hypertrophy. Aspiration was negative. Provocation was negative. Anesthetic response was positive with the patient noting relief of her cervicalgia. Preinjection VAS 4/10. Postinjection VAS 0/10. Steroid response pending follow-up. Estimated blood loss: Minimal Anesthesia: TIVA Complications: None Details of procedure: After obtaining stable vital signs, informed consent and IV access, with no contraindications to proceeding, the patient was taken to the operating room and placed in a prone position with all extremities padded and appropriate monitors placed. The patient was sterilely prepped and draped over the cervical spine. Using fluoroscopic visualization the insertion sites were marked for a posterior paravertebral approaches and using standard technique, a 26-gauge needle was inserted into each joint capsule without paresthesias. Aspiration was negative. Isovue-300 contrast 0.2 mL was injected to produce each arthrogram. There were no signs of intravascular or intrathecal uptake. Bupivacaine 0.75% 0.5 mL with lidocaine 4% 0.25 mL and triamcinolone 10 mg was then injected incrementally with frequent negative aspirations at each joint. There were no signs of intravascular or intrathecal uptake. The patient's vital signs remained stable. All needles were removed and the patient was taken to the PACU in good condition. at 1734 Reported and signed by: Thomas Alexander M.D. [facility] NAME: LUNA SAUNDERS [address] [facility] PHYS: Thomas Kraft MD [place], [place] [address] : 1950 AGE: 69 SEX: F LOC: [facility] PHONE #: [phone] EXAM DATE: 02/13/2020 [place] [facility] [place]: [phone] RAD #: D/C DT PAGE 1 Signed Report (CONTINUED) Patient Name: LUNA SAUNDERS Unit No: [id number] EXAMS: CPT CODE: [id number] XR FLUORO FOR SPINE INJ 06150 (Continued) CC: Technologist: Juana Urias(R) Transcribed D/ (173) Debbie [facility] NAME: LUNA SAUNDERS [address] [facility] PHYS: Thomas Kraft MD [place] [address] : 1950 AGE: 69 SEX: F LOC: [facility] PHONE #: [phone] EXAM DATE: 02/13/2020 [place]US[place] [facility] [place]: [phone] RAD #: D/C DT PAGE 2 Signed Report Patient Name: LUNA SAUNDERS Unit No: [id number] EXAMS: CPT CODE: [id number] XR FLUORO FOR SPINE INJ 66250 (Continued) Orig Print D/T: S: 02/13/2020 (173) [facility] NAME: LUNA SAUNDERS [address] [facility] PHYS: Thomas Kraft MD [place] [address] : 1950 AGE: 69 SEX: F LOC: [facility] PHONE #: [phone] EXAM DATE: 02/13/2020 [place] [facility] [place]: [phone] RAD #: D/C DT PAGE 3 Signed Report ANEMIA STUDY 2019-03-28 14:43:00 Test Item Value Reference Range Interpretation Comme nts Vitamin B12 Lvl (test code = Vitamin B12 Lvl) [id number] [facility] [id number] 14:43:00 Test Item Value Reference Range Interpretation Comments VITAMIN B1 (THIAMINE) WHOLE BLOOD (test 149 [id number] code = VITAMIN B1 (THIAMINE) WHOLE BLOOD) [id number] 14:43:00 Test Item Value Reference Range Interpretation Comments Sed Rate (test code = Sed Rate) 9 [id number] 14:43:00 Test Item Value Reference Range Interpretation Comments MARI Ser Interp (test code = MARI SEE COMMENT Ser Interp) Rogerio Longo
[2022-05-23 16:53] LABS: Absolute Lymphocytes (CBC) 1.9 K/uL (0.7-4.9); Hematocrit 35.1 % (36.0-45.0); Lymphocytes % 24.6 % (15.3-44.8); MCV 95.6 fL (80-100); MPV 6.5 fL (7.6-11.3); RBC Red Blood Cell Count 3.67 M/uL (3.86-4.86)
[2022-05-23 17:13] LABS: Potassium 3.5 mmol/L (3.5-5.1)
--- NOTE | 2022-05-23 18:17 | RAD REPORT ---
EXAM DESCRIPTION: CT - Head Brain Wo Cont - 05/23/2022 6:03 pm CLINICAL HISTORY: headache Headache, hypertension COMPARISON: No comparisons TECHNIQUE: All CT scans are performed using dose optimization technique as appropriate and may inclu de automated exposure control or mA/KV adjustment according to patient size. FINDINGS: No intracranial hemorrhage, hydrocephalus or extra-axial fluid collection.Mild generalized brain atrophy is present with mild periventricular and deep white matter chronic microvascular ische michelle changes.No areas of brain edema or evidence of midline shift. Mild fluid is seen in both maxillary antra. The calvarium is intact. IMPRESSION: No acute intracranial abnormality. Mild bilateral sinus fluid.
[2022-05-23] MEDS ORDERED: NA CHLORIDE 0.9% 50 ML IV ONE (18:28)
[2022-05-23] MEDS ORDERED: DIPHENHYDRAMINE 50 MG/ML VIAL ONE (18:28)
[2022-05-23] MEDS ORDERED: METOCLOPRAMIDE 10 MG/2mL INJ ONE (18:28)
--- NOTE | 2022-05-23 19:40 | ER ---
Nurse's Notes [facility] Name: Luna Chavez Age: 71 yrs Sex: Female : 1950 Arrival Date: 05/23/2022 Time: 15:25 Bed 26 Private MD: Diagnosis: Headache;Elevated Blood Pressure Presentation: 05/23 16:08 Chief complaint: Patient states: has been getting high bp readings at home X 3 days, iw today she woke up with a aheadache , bp was 154/99 and her machine told her she had an irregular pulse. Coronavirus screen: At this time, the client does not indicate any symptoms associated with coronavirus-19. Ebola Screen: Patient negative for fever greater than or equal to 101.5 degrees Fahrenheit, and additional compatible Ebola Virus Disease symptoms Patient denies exposure to infectious person. Patient denies travel to an Ebola-affected area in the 21 days before illness onset. No symptoms or risks identified at this time. 16:08 Method Of Arrival: Ambulatory iw 16:08 Acuity: MONTY 3 iw Triage Assessment: 16:20 General: Appears in no apparent distress. Behavior is calm, cooperative, appropriate iw for age. Historical: - Allergies: 16:09 No Known Allergies; iw - PMHx: 16:09 Hypertensive disorder; iw - Immunization history:: Client reports receiving the 2nd dose of the Covid vaccine. - Social history:: Smoking status: . Screenin:34 Abuse screen: Denies threats or abuse. Denies injuries from another. Nutritional tp1 screening: No deficits noted. Tuberculosis screening: No symptoms or risk factors identified. Fall Risk None identified. Assessment: 16:33 General: Appears in no apparent distress. comfortable, Behavior is calm, cooperative. tp1 Pain: Complains of pain in head Pain does not radiate. Pain currently is 10 out of 10 on a pain scale. Quality of pain is described as sharp, Pain began this morning. Neuro: Level of Consciousness is awake, alert, obeys commands, Oriented to person, place, time, situation, Denies weakness blurred vision dizziness. Cardiovascular: Denies chest pain, Patient's skin is warm and dry. Respiratory: Airway is patent Respiratory effort is even, unlabored, Denies shortness of breath. GI: No signs and/or symptoms were reported involving the gastrointestinal system. : No signs and/or symptoms were reported regarding the genitourinary system. EENT: No signs and/or symptoms were reported regarding the EENT system. Derm: Skin is pink, warm \T\ dry. Musculoskeletal: Circulation, motion, and sensation intact. 17:30 Reassessment: Patient appears in no apparent distress at this time. No changes from tp1 previously documented assessment. Patient and/or family updated on plan of care and expected duration. Pain level reassessed. Patient is alert, oriented x 3, equal unlabored respirations, skin warm/dry/pink. 18:15 Reassessment: Patient appears in no apparent distress at this time. No changes from tp1 previously documented assessment. Patient is alert, oriented x 3, equal unlabored respirations, skin warm/dry/pink. continues to CO 10/10 headache, provider notified. 19:07 Reassessment: states pain is getting better, rates pain 6/10. tp1 Vital Signs: 16:20 BP 173 / 111; Pulse 95; Resp 18; Temp 98.7; Pulse Ox 97% ; Weight 68.04 kg; Height 5 iw ft. 6 in. (167.64 cm); Pain 0/10; 17:30 BP 154 / 101; Pulse 82; Resp 15; Pulse Ox 100% on R/A; tp1 18:36 BP 160 / 105; Pulse 79; Resp 15; Pulse Ox 97% on R/A; tp1 19:22 BP 152 / 98; Pulse 85; Resp 16; Pulse Ox 100% on R/A; tp1 16:20 Body Mass Index 24.21 (68.04 kg, 167.64 cm) ED Course: 15:25 Patient arrived in ED. as 16:09 Triage completed. iw 16:10 Arm band placed on. iw 16:21 Dorian Mathews PA is PHCP. [facility] 16:21 Chance Falcon MD is Attending Physician. jmm 16:29 Chiara Townsend, ANA is Primary Nurse. tp1 16:35 Patient has correct armband on for positive identification. Bed in low position. Call tp1 light in reach. Client placed on continuous cardiac and pulse oximetry monitoring. NIBP monitoring applied. 16:35 No provider procedures requiring assistance completed. tp1 16:39 EKG done, by ED staff, reviewed by Dorian LOPEZ. em1 16:42 Inserted saline lock: 20 gauge in right antecubital area, using aseptic technique. tp1 Blood collected. 18:05 CT Head Brain wo Cont In Process Unspecified. EDMS 19:39 Yadira Garcia MD is Referral Physician. shellie Administered Medications: 18:31 Drug: diphenhydrAMINE 12.5 mg Route: IVP; Site: right antecubital; tp1 20:14 Follow up: Response: Pain is decreased tp1 18:34 Drug: Reglan (metoCLOPramide) 10 mg Route: IVP; Site: right antecubital; tp1 20:14 Follow up: Response: Pain is decreased tp1 Medication: 18:37 VIS not applicable for this client. tp1 Outcome: 19:40 Discharge ordered by . shellie 20:14 Discharged to home ambulatory. tp1 20:14 Condition: good 20:14 Discharge instructions given to patient, Instructed on discharge instructions, follow up and referral plans. Demonstrated understanding of instructions, follow-up care. 20:15 Patient left the ED. tp1 Signatures: Dispatcher [employer] EDMS Dorian Mathews PA PA Sarah Kovacs as Madison Chavez, RN Camden Hardin em Chiara Townsend RN RN tp1 Corrections: (The following items were deleted from the chart) 16:39 16:39 Initial lab(s) drawn, by me, sent to lab. em1 em1 18:34 18:34 Reglan (metoCLOPramide) 10 mg IVP in right forearm tp1 tp1 18:35 18:34 Reassessment: Patient appears in no apparent distress at this time. No changes tp1 from previously documented assessment. Patient is alert, oriented x 3, equal unlabored respirations, skin warm/dry/pink. continues to CO 10/10 headache, provider notified tp1
--- NOTE | 2022-05-23 19:40 | EDPHYS ---
Physician Documentation [facility] Name: Luna Chavez Age: 71 yrs Sex: Female : 1950 Arrival Date: 05/23/2022 Time: 15:25 Bed 26 Private MD: ED Physician Chance Falcon HPI: 05/23 16:26 This 71 yrs old Female presents to ER via Ambulatory with complaints of Blood Pressure [facility] Problem. 16:26 This is a 71-year-old female with history of hypertension the presents emerged [facility] department with complaints of headache which she awoke to this morning. Patient has had an elevated blood pressure since. Denies chest pain or shortness of breath. Patient is taking metoprolol, hydrochlorothiazide, amlodipine for blood pressure.. Historical: - Allergies: 16:09 No Known Allergies; iw - PMHx: 16:09 Hypertensive disorder; iw - Immunization history:: Client reports receiving the 2nd dose of the Covid vaccine. - Social history:: Smoking status: . ROS: 16:26 Constitutional: Negative for fever, chills, and weight loss, Cardiovascular: Negative jm for chest pain, palpitations, and edema, Respiratory: Negative for shortness of breath, cough, wheezing, and pleuritic chest pain. 16:26 Neuro: Positive for headache. 16:26 All other systems are negative. Exam: 16:26 Constitutional: This is a well developed, well nourished patient who is awake, alert, jmm and in no acute distress. Head/Face: atraumatic. Eyes: EOMI, no conjunctival erythema appreciated ENT: Moist Mucus Membranes Neck: Trachea midline, Supple Chest/axilla: Normal chest wall appearance and motion. Cardiovascular: Regular rate and rhythm. No edema appreciated Respiratory: Normal respirations, no respiratory distress appreciated Abdomen/GI: Non distended Back: Normal ROM Skin: General appearance color normal MS/ Extremity: Moves all extremities, no obvious deformities appreciated, no edema noted to the lower extremities Neuro: Awake and alert Psych: Behavior is normal, Mood is normal, Patient is cooperative and pleasant Vital Signs: 16:20 BP 173 / 111; Pulse 95; Resp 18; Temp 98.7; Pulse Ox 97% ; Weight 68.04 kg; Height 5 iw ft. 6 in. (167.64 cm); Pain 0/10; 17:30 BP 154 / 101; Pulse 82; Resp 15; Pulse Ox 100% on R/A; tp1 18:36 BP 160 / 105; Pulse 79; Resp 15; Pulse Ox 97% on R/A; tp1 19:22 BP 152 / 98; Pulse 85; Resp 16; Pulse Ox 100% on R/A; tp1 16:20 Body Mass Index 24.21 (68.04 kg, 167.64 cm) iw MDM: 16:26 Patient medically screened. [facility] 19:27 Data reviewed: vital signs, nurses notes. [facility] 19:39 Counseling: I had a detailed discussion with the patient and/or guardian regarding: the [facility] historical points, exam findings, and any diagnostic results supporting the discharge/admit diagnosis, lab results, the need for outpatient follow up, to return to the emergency department if symptoms worsen or persist or if there are any questions or concerns that arise at home. 19:53 ED course: Patient's headache is relieved in the ED. Blood pressure is decreased. [facility] Patient's labs are unremarkable. CT was unremarkable. Patient advised to follow-up with his head animal trainer for further evaluation and titration of medication. Patient otherwise given strict return precautions. Patient understood and agrees plan of care.. 05/23 16:26 Order name: Basic Metabolic Panel; Complete Time: 17:15 [facility] 05/23 16:26 Order name: CBC with Diff; Complete Time: 17:15 [facility] 05/23 16:26 Order name: Troponin HS; Complete Time: 17:15 [facility] 05/23 16:26 Order name: CT Head Brain wo Cont; Complete Time: 18:20 [facility] 05/23 16:26 Order name: EKG; Complete Time: 16:27 [facility] 05/23 16:26 Order name: Cardiac monitoring; Complete Time: 16:42 [facility] 05/23 16:26 Order name: EKG - Nurse/Tech; Complete Time: 16:39 [facility] 05/23 16:26 Order name: IV Saline Lock; Complete Time: 16:42 [facility] 05/23 16:26 Order name: Labs collected and sent; Complete Time: 16:42 [facility] 05/23 16:26 Order name: O2 Per Protocol; Complete Time: 16:30 [facility] 05/23 16:26 Order name: O2 Sat Monitoring; Complete Time: 16:30 jmm Administered Medications: 18:31 Drug: diphenhydrAMINE 12.5 mg Route: IVP; Site: right antecubital; tp1 20:14 Follow up: Response: Pain is decreased tp1 18:34 Drug: Reglan (metoCLOPramide) 10 mg Route: IVP; Site: right antecubital; tp1 20:14 Follow up: Response: Pain is decreased tp1 Disposition: 05/24 07:30 Co-signature as Attending Physician, Chance Falcon MD I agree with the assessment and rt plan of care. Disposition Summary: 05/23/22 19:40 Discharge Ordered Location: Home jmm Condition: Stable jmm Diagnosis - Headache jmm - Elevated Blood Pressure jmm Followup: jmm - With: Yadira Garcia MD - When: 2 - 3 days - Reason: Recheck today's complaints, Continuance of care, Re-evaluation by your physician Discharge Instructions: - Discharge Summary Sheet jmm - General Headache Without Cause jmm - Hypertension, Adult jmm Forms: - Medication Reconciliation Form jmm - Thank You Letter jmm - Antibiotic Education jmm - Prescription Opioid Use jm Signatures: Dispatcher [employer] EDMS Dorian Mathews PA PA jmm Madison Chavez, RN RN iw Chiara Townsend RN RN tp1 Chance Falcon MD MD rt
[2022-05-23 20:43] VITALS: TEMP 98.7
[2022-05-23 20:56] VITALS: BP 152/98; O2SAT 100
--- NOTE | 2022-05-24 13:49 | EKG ---
Test Date: 2022-05-23 Test Time: 16:35:58 Planograph Operator: ZORA MEASUREMENT RESULTS: Intervals: Rate: 76 WI: 154 QRSD: 80 QT: 412 QTc: 463 [place]: P: 67 WI: 154 QRS: 43 T: 37 INTERPRETIVE STATEMENTS: Sinus rhythm with premature atrial complexes Otherwise normal ECG Compared to ECG 09/27/2016 08:36:10 Atrial premature complex(es) now present Electronically Signed On 05-24-22 13:47:25 MANUFACTURING ENGINEERING TECHNICIAN by Vj Saenz
== END 2022-05-23 20:15 | disposition home or self-care (01) ==
LOC: ER 15:17
DX: R51.9 Headache, unspecified (principal); I10 Essential (primary) hypertension
CPT/HCPCS: 93005; 85025; 80048; 36415; 84484; 70450; 96375; 96374; 99284; J2765; J1200

== ENCOUNTER 2023-06-13 15:43 | Emergency (ER) | payer OTHER ==
--- NOTE | 2023-06-13 16:17 | RAD REPORT ---
EXAM DESCRIPTION: CT - Ct Stroke Brain Wo Cont - 06/13/2023 3:52 pm CLINICAL HISTORY: STROKE ALERT COMPARISON: Head Brain Wo Cont dated 05/23/2022 TECHNIQUE: Noncontrast head CT images were obtained without IV contrast. Multiplanar reformats were generated and reviewed. All CT scans are performed using dose optimization technique as appropriate and may include automated exposure control or mA/KV adjustment according to patient size. FINDINGS: No intracranial hemorrhage, mass, or edema. Midline structures are unremarkable. Normal ventricular caliber for age. Bhandari-white matter differentiation is preserved, without evidence of acute infarct. No abnormal extra- axial fluid collections. Mastoid air cells and visualized portions of the paranasal sinuses are clear. No acute bony findings. IMPRESSION: No evidence of an acute intracranial process. The findings were communicated to Timothy Melendez on 06/13/2023 at 16:04 hours.
[2023-06-13 16:19] LABS: Absolute Lymphocytes (CBC) 1.6 K/uL (0.7-4.9); Hematocrit 42.6 % (36.0-45.0); Lymphocytes % 18.4 % (15.3-44.8); MCV 96.2 fL (80-100); MPV 7.3 fL (7.6-11.3); Platelets 283 thou/uL (152-406); RBC Red Blood Cell Count 4.43 M/uL (3.86-4.86)
[2023-06-13 16:20] LABS: Protime INR 0.96
[2023-06-13 16:34] LABS: Potassium 3.7 mEq/L (3.5-5.1); Troponin High Sensitivity 5.1 pg/mL (<58.9)
--- NOTE | 2023-06-13 16:34 | RAD REPORT ---
EXAM DESCRIPTION: CT - Head angio - 06/13/2023 4:03 pm CLINICAL HISTORY: CONFUSED COMPARISON: Ct Stroke Brain Wo Cont dated 06/13/2023; Head Brain Wo Cont dated 05/23/2022; Neck Desiree o dated 06/13/2023 TECHNIQUE: Axial CT angiography images of the head was performed with multiplanar and maximum intens ity projection reconstructions. Images performed following intravenous administration of 100mL Isovue 370. All CT scans are performed using dose optimization technique as appropriate and may include automated exposure control or mA/KV adjustment according to patient size. FINDINGS: No evidence of large vessel occlusion. No evidence of aneurysm or dissection flap is detec stephie. No flow-limiting stenosis or vascular malformation identified. Antegrade flow is seen in the vertebral arteries. The vertebral arteries are codominant. The visualized dural venous sinuses are grossly patent. IMPRESSION: No evidence of large vessel occlusion or flow-limiting stenosis.
[2023-06-13 16:42] LABS: Specific Gravity > 1.030 (1.005-1.030); Urine Bacteria None Seen /HPF (<20); Urine Bilirubin NEGATIVE (Negative); Urine Blood Negative (Negative); Urine Clarity Clear (Clear); Urine Color Light-Yellow (Yellow); Urine Glucose NEGATIVE (Negative); Urine Mucus Slight /HPF (None Seen); Urine Protein TRACE (Negative); Urine RBC <5 /HPF (None Seen); Urine Urobilinogen Normal (Normal)
[2023-06-13 16:44] LABS: Barbiturates NEGATIVE (NEGATIVE); Benzodiazepines NEGATIVE (NEGATIVE); Cocaine NEGATIVE (NEGATIVE); METHAMPHETAM NEGATIVE (NEGATIVE); Methadone NEGATIVE (NEGATIVE); Opiates NEGATIVE (NEGATIVE); Phencyclidine NEGATIVE (NEGATIVE); THC Cannibis POSITIVE (NEGATIVE)
--- NOTE | 2023-06-13 16:47 | RAD REPORT ---
EXAM DESCRIPTION: CT - Neck Angio - 06/13/2023 4:03 pm CLINICAL HISTORY: AMS COMPARISON: Ct Stroke Brain Wo Cont dated 06/13/2023 TECHNIQUE: Axial CT angiography images of the head was performed with multiplanar and maximum intens ity projection reconstructions. Images performed following intravenous administration of 100mL Isovue 370. All CT scans are performed using dose optimization technique as appropriate and may include automated exposure control or mA/KV adjustment according to patient size. Quantification of carotid stenosis, if any, is performed according to NASCET criteria. FINDINGS: A left aortic arch is identified with normal three vessel configuration of the great vesse ls. No significant flow abnormality is seen of the common carotid bilaterally. Scattered [id number] calcified atherosclerotic plaque. At least moderate predominantly calcified atherosclerotic plaque at the right carotid bifurcation, wi th narrowing at the right ICA origin. Narrowest luminal diameter measures 2.7 mm, amounting to 44% st enosis by NASCET criteria, in relation to ICA diameter of 4.8 mm more distally. Mild calcified athero sclerotic plaque at the left carotid bifurcation without significant narrowing. No other significant stenosis is identified involving the cervical segments of both internal carotid arteries. [id number] atherosclerotic narrowing seen along the origin of the right vertebral artery. Betzy tebral arteries are otherwise patent IMPRESSION: Mild stenosis of the right ICA origin, amounting to 44% by NASCET criteria, secondary to moderately dense atherosclerotic calcific plaque. Moderate to severe narrowing of the right vertebral artery origin. No other hemodynamically significant stenosis. CAROTID STENOSIS REFERENCE USING NASCET CRITERIA: % ICA stenosis = (1 - narrowest ICA diameter/diameter of distal cervical ICA) x 100. Mild - <50% stenosis. Moderate - 50-69% stenosis. Severe - 70-94% stenosis. Near occlusion - 95-99% stenosis. Occluded - 100% stenosis.
--- NOTE | 2023-06-13 17:05 | RAD REPORT ---
EXAM DESCRIPTION: [facility] 4:43 pm CLINICAL HISTORY: AMS COMPARISON: No comparisons TECHNIQUE: Portable AP view of the chest. FINDINGS: The lungs are clear. No pneumothorax or effusion. The cardiomediastinal contours are unre markable. IMPRESSION: No acute cardiopulmonary process.
[2023-06-13] MEDS ORDERED: NA CHLORIDE 0.9% 1,000 ML ONE (17:17)
--- NOTE | 2023-06-13 17:38 | ER ---
Nurse's Notes [facility] Name: Luna Chavez Age: 72 yrs Sex: Female : 1950 Arrival Date: 06/13/2023 Time: 15:43 Bed 2 Private MD: Diagnosis: Altered mental status, unspecified;Hypo-osmolality and hyponatremia;Dehydration Presentation: 06/13 16:03 Chief complaint: Spouse and/or significant other states: Pt woke up at 1030 this cm10 morning and was confused. States that patient was normal at 0500. Pt confused during triage. Having to ask questions multiple times. An acute neurological deficit is present. The charge nurse has been notified. Initial Sepsis Screen: Does the patient meet any 2 criteria? Altered Mental Status. Does the patient have a suspected source of infection?. Risk Assessment: Do you want to hurt yourself or someone else? Patient reports no desire to harm self or others. Onset of symptoms was June 13, 2023 at 05:00. 16:03 Method Of Arrival: Ambulatory cm10 16:03 Acuity: MONTY 2 cm10 16:07 Coronavirus screen: Vaccine status: Patient reports being unvaccinated. Client denies cm10 travel out of the [place] in the last 14 days. Ebola Screen: Patient denies travel to an Ebola-affected area in the 21 days before illness onset. No symptoms or risks identified at this time. Triage Assessment: 15:50 The onset of the patients symptoms was June 13, 2023 at 05:00. General: Appears in ld1 no apparent distress. comfortable, Behavior is calm, cooperative, appropriate for age. Pain: Denies pain. EENT: No signs and/or symptoms were reported regarding the EENT system. Neuro: Level of Consciousness is awake, alert, confused, Oriented to person, Reports confusion. 15:50 Cardiovascular: Capillary refill < 3 seconds Patient's skin is warm and dry. ld1 Respiratory: Airway is patent Respiratory effort is even, unlabored. GI: Abdomen is flat, non-distended. : No signs and/or symptoms were reported regarding the genitourinary system. Derm: No signs and/or symptoms reported regarding the dermatologic system. Musculoskeletal: No signs and/or symptoms reported regarding the musculoskeletal system. Stroke Activation: Symptom onset > 6 hours Physician: Stroke Attending; Name: ; Notified At: ; Arrived At: Physician: Chief Stroke Resident; Name: ; Notified At: ; Arrived At: Physician: Stroke Resident; Name: ; Notified At: ; Arrived At: Physician: ED Attending; Name: Dr. Melendez; Notified At: 15:44; Arrived At: 15:44 Physician: ED Resident; Name: ; Notified At: ; Arrived At: Historical: - Allergies: 16:01 No Known Allergies; ld1 - PMHx: 15:48 Hypertensive disorder; ld1 - Immunization history:: Adult Immunizations unknown. - Social history:: Smoking status: Patient denies any tobacco usage or history of. Patient uses alcohol, on a daily basis. 4-5 drinks per day.. - Family history:: not pertinent. - Hospitalizations: : No recent hospitalization is reported. Screenin:21 Margy Swallow Protocol 3 oz Water Swallow Challenge: Pt able to drink all water without ld1 stopping, coughing, choking or throat clearing: Yes Result: PASS. 16:33 [facility] ED Fall Risk Assessment (Adult) History of falling in the last 3 months, ld1 including since admission No falls in past 3 months (0 pts). Abuse screen: Denies threats or abuse. Denies injuries from another. Nutritional screening: No deficits noted. Tuberculosis screening: No symptoms or risk factors identified. Assessment: 15:44 Reassessment: CODE STROKE CALLED AT THIS TIME. cm10 15:55 VAN Scoring: Arm Drift: Patients demonstrates NO arm weakness. Patient is VAN Negative. ld1 TNKase (Tenecteplase) Screening: Contraindications: Patient reports onset of signs and symptoms of stroke greater than 6 hours ago: Yes. Reassessment: See triage assessment. 16:33 General: Appears in no apparent distress. comfortable, Behavior is calm, cooperative, ld1 appropriate for age. Neuro: Level of Consciousness is awake, alert, obeys commands, Oriented to person, place, time, situation, Appropriate for age Pt reports no longer being confused. AAOX4 at this time. ERP at bedside.. 17:30 Reassessment: Patient appears in no apparent distress at this time. Patient and/or ld1 family updated on plan of care and expected duration. Pain level reassessed. Patient is alert, oriented x 3, equal unlabored respirations, skin warm/dry/pink. Vital Signs: 16:30 BP 181 / 106; Pulse 72; Resp 18; Temp 97.9(TE); Pulse Ox 100% on R/A; ld1 16:33 BP 166 / 94; Pulse 84; Resp 18; Pulse Ox 97% on R/A; ld1 17:04 BP 157 / 103; Pulse 75; Resp 17; Pulse Ox 96% ; ld1 18:04 BP 146 / 99; Pulse 82; Resp 18; Pulse Ox 100% on R/A; ld1 NIH Stroke Scale Scores: 16:00 NIHSS Score: 0 ld1 16:38 NIHSS Score: 0 data governance analyst Course: 15:45 Patient arrived in ED. mg5 15:45 Timothy Melendez MD is Attending Physician. rn 15:50 Arm band placed on right wrist. ld1 15:54 CT Stroke Brain w/o Contrast In Process Unspecified. EDMS 16:00 Inserted saline lock: 22 gauge in right antecubital area, using aseptic technique. ld1 Blood collected. 16:[address] In Process Unspecified. EDMS 16:[address] In Process Unspecified. EDMS 16:06 Triage completed. cm10 16:29 Urinalysis w/ reflexes Sent. ld1 16:29 Urine Drug Screen Sent. ld1 16:33 No provider procedures requiring assistance completed. ld1 16:33 Patient has correct armband on for positive identification. Placed in gown. Bed in low ld1 position. Call light in reach. Side rails up X2. clinical research monitor on. Pulse ox on. NIBP on. Door closed. Noise minimized. Warm blanket given. 16:45 Stroke CXR 1 View In Process Unspecified. EDMS 16:53 Roxy Herrera, RN is Primary Nurse. ld1 18:04 IV discontinued, intact, bleeding controlled, No redness/swelling at site. ld1 Administered Medications: 17:04 Drug: NS 0.9% IV 1000 ml IV at 1000 ml once Route: IV; Rate: 1000 ml; Site: right ld1 antecubital; Medication: 18:04 VIS not applicable for this client. ld1 Point of Care Testing: Blood Glucose: 15:50 Blood Glucose: 145 mg/dL; ld1 Ranges: Outcome: 17:38 Discharge ordered by . rn 18:03 Discharged to home ambulatory, with family, ld1 18:03 Condition: stable 18:03 Discharge instructions given to patient, family, Instructed on discharge instructions, follow up and referral plans. Demonstrated understanding of instructions, follow-up care, 18:05 Patient left the ED. ld1 NIH Stroke Scale - NIH Stroke Score Date: 06/13/2023 Time: 16:00 Total Score = 0 10. Dysarthria (speech clarity - read or repeat words) - 0(Normal) 11. Extinction and Inattention (visual/tactile/auditory/spatial/personal) - 0(No abnormality) 1a. Level of Consciousness (LOC) - 0(Alert) 1b. Level of Consciousness (LOC) (Month \T\ Age) - 0(Both) 1c. LOC Commands (Open \T\ Closes Eyes/Geographic Information Systems Analyst) - 0(Both) 2. Best Gaze (Lateral Gaze Paresis) - 0(Normal) 3. Visual Field Loss - 0(No visual loss) 4. Facial Palsy - 0(Normal) 5a. Left Arm: Motor (10-second hold) - 0(No drift) 5b. Right Arm: Motor (10-second hold) - 0(No drift) 6a. Left Leg: Motor (5-second hold - always test supine) - 0(No drift) 6b. Right Leg: Motor (5-second hold - always test supine) - 0(No drift) 7. Limb Ataxia (finger/nose \T\ heel/montoya - test with eyes open) - 0(Absent) 8. Sensory Loss (pinprick arms/legs/face) - 0(Normal) 9. Best Language: Aphasia (description/naming/reading) - 0(No aphasia) Initials: ld1 NIH Stroke Scale - NIH Stroke Score Date: 06/13/2023 Time: 16:38 Total Score = 0 10. Dysarthria (speech clarity - read or repeat words) - 0(Normal) 11. Extinction and Inattention (visual/tactile/auditory/spatial/personal) - 0(No abnormality) 1a. Level of Consciousness (LOC) - 0(Alert) 1b. Level of Consciousness (LOC) (Month \T\ Age) - 0(Both) 1c. LOC Commands (Open \T\ Closes Eyes/Geographic Information Systems Analyst) - 0(Both) 2. Best Gaze (Lateral Gaze Paresis) - 0(Normal) 3. Visual Field Loss - 0(No visual loss) 4. Facial Palsy - 0(Normal) 5a. Left Arm: Motor (10-second hold) - 0(No drift) 5b. Right Arm: Motor (10-second hold) - 0(No drift) 6a. Left Leg: Motor (5-second hold - always test supine) - 0(No drift) 6b. Right Leg: Motor (5-second hold - always test supine) - 0(No drift) 7. Limb Ataxia (finger/nose \T\ heel/montoya - test with eyes open) - 0(Absent) 8. Sensory Loss (pinprick arms/legs/face) - 0(Normal) 9. Best Language: Aphasia (description/naming/reading) - 0(No aphasia) Initials: rn Signatures: Dispatcher [employer] EDTimothy Melgoza MD MD rn Sims, Lauren, RN RN ld1 Sonya Gonzalez RN RN cm10 Emmy Sahni mg5 Corrections: (The following items were deleted from the chart) 16:01 16:01 PMHx: Alcohol dependence; ld1 ld1 16:07 16:03 Onset of symptoms was June 13, 2023 at 05:00 cm10 cm10
--- NOTE | 2023-06-13 17:38 | EDPHYS ---
Physician Documentation [facility] Name: Luna Chavez Age: 72 yrs Sex: Female : 1950 Arrival Date: 06/13/2023 Time: 15:43 Bed 2 Private MD: ED Physician Timothy Melendez HPI: 06/13 16:02 This 72 yrs old Female presents to ER via Unassigned with complaints of AMS. rn 16:02 reports last known normal was 5 AM this morning. They both had trouble sleeping rn so stayed up to 5 and went back to sleep. Upon awakening has been noted that was acting strange with repetitive speech and seemed confused. No facial droop. No slurred speech. Body working well otherwise and normal gait. Denies any head injury. Denies this happening before. No medication changes. states that her blood pressure has been running high lately. Patient has been under a lot of stress as they recently had of daughter. also reports that she has been feeling ill lately checking her temperature and feeling warm. also states that she is a daily drinker and last amount of liquor was 2 or 3 days ago, and is usually a quart of liquor a day.. 16:04 The patient's problem is reported as altered mental status. Onset: The symptoms/episode rn began/occurred this morning. Duration: The episode is continuous. The symptoms are alleviated by nothing. The symptoms are aggravated by nothing. Severity of symptoms: At their worst the symptoms were moderate in the emergency department the symptoms are unchanged. The patient has not experienced similar symptoms in the past. The patient has not recently seen a physician. Historical: - Allergies: 16:01 No Known Allergies; ld1 - PMHx: 15:48 Hypertensive disorder; ld1 - Immunization history:: Adult Immunizations unknown. - Social history:: Smoking status: Patient denies any tobacco usage or history of. Patient uses alcohol, on a daily basis. 4-5 drinks per day.. - Family history:: not pertinent. - Hospitalizations: : No recent hospitalization is reported. ROS: 16:04 Constitutional: Negative for fever, chills, and weight loss, Eyes: Negative for injury, rn pain, redness, and discharge, Cardiovascular: Negative for chest pain, palpitations, and edema, Respiratory: Negative for shortness of breath, cough, wheezing, and pleuritic chest pain, Abdomen/GI: Negative for abdominal pain, nausea, vomiting, diarrhea, and constipation, Back: Negative for injury and pain, MS/Extremity: Negative for injury and deformity, Skin: Negative for injury, rash, and discoloration, Neuro: Negative for headache, weakness, numbness, tingling, and seizure, Exam: 16:04 Radiologist reports: No acute findings and CT head without contrast per Dr. Licea rn 16:04 Constitutional: This is a well developed, well nourished patient who is awake, alert, and in no acute distress. 16:38 Head/Face: Normocephalic, atraumatic. ENT: Dry mucous membranes Cardiovascular: rn Regular rate and rhythm. No pulse deficits. Respiratory: No increased work of breathing, no retractions or nasal flaring. Abdomen/GI: Soft, non-tender MS/ Extremity: Pulses equal, no cyanosis. Neurovascular intact. Full, normal range of motion. Equal circumference. Neuro: Awake and alert, GCS 15, oriented to person, place, time, and situation. Cranial nerves II-XII grossly intact. Motor strength 5/5 in all extremities. Sensory grossly intact. Cerebellar exam normal. Normal gait. 17:45 ECG was reviewed by the Attending Physician. rn Vital Signs: 16:30 BP 181 / 106; Pulse 72; Resp 18; Temp 97.9(TE); Pulse Ox 100% on R/A; ld1 16:33 BP 166 / 94; Pulse 84; Resp 18; Pulse Ox 97% on R/A; ld1 17:04 BP 157 / 103; Pulse 75; Resp 17; Pulse Ox 96% ; ld1 18:04 BP 146 / 99; Pulse 82; Resp 18; Pulse Ox 100% on R/A; ld1 NIH Stroke Scale Scores: 16:00 NIHSS Score: 0 ld1 16:38 NIHSS Score: 0 rn MDM: 15:46 Patient medically screened. rn 17:36 Differential diagnosis: CVA, TIA, metabolic disorder, Electrolyte disorder, rn hyponatremia, side effect of alcoholism. Data reviewed: vital signs, nurses notes, lab test result(s), radiologic studies, CT scan, plain films, and as a result, I will admit patient. Consideration of Admission/Observation Escalation of care including admission/observation considered. Patient declines. States has PCP visit tomorrow. Is back to baseline and confirms is back to baseline. Still recommended admission to and patient for TIA workup as well as hyponatremia. wants her admitted as to why but patient declines.. Care significantly affected by the following chronic conditions: Hypertension, Alcoholism. Counseling: I had a detailed discussion with the patient and/or guardian regarding the historical points, exam findings, and any diagnostic results supporting the discharge/admit diagnosis, lab results, radiology results, the need for outpatient follow up, to return to the emergency department if symptoms worsen or persist or if there are any questions or concerns that arise at home. Response to treatment: the patient's symptoms have markedly improved after treatment, the patient's symptoms have resolved after treatment, the patient's condition has returned to base line, the patient is now symptom free. Refusal of service: The patient/guardian displays adequate decision making capability and despite a detailed discussion of alternatives, benefits, risks, and consequences refuses: Admission to the hospital for further work-up and treatment. ED course: I have personally reviewed all of the results, including but not limited to blood tests and imaging deemed necessary to safely discharge this patient at this time. All results given to and printed out for patient. I personally went over all the results with the patient and answered all questions. Patient will follow-up with PCP and or specialist as discussed. Return precautions given and understood.. 17:38 Counseling: I had a detailed discussion with the patient and/or guardian regarding the rn presence of at least one elevated blood pressure reading (>120/80) during this emergency department visit. Special discussion: I have referred the patient to see his PCP for further evaluation of high blood pressure. 06/13 15:47 Order name: Basic Metabolic Panel; Complete Time: 17:00 rn 06/13 15:47 Order name: CBC with Diff; Complete Time: 17: rn 06/13 15:47 Order name: High Sensitivity Troponin; Complete Time: 17:00 rn 06/13 15:47 Order name: Protime (+inr); Complete Time: 16: rn 06/13 15:47 Order name: Ptt, Activated; Complete Time: 16: rn 06/13 15:47 Order name: Urinalysis w/ reflexes; Complete Time: 17:00 rn 06/13 15:47 Order name: Urine Drug Screen; Complete Time: 17:00 rn 06/13 16:32 Order name: Glucose, Ancillary Testing; Complete Time: 17:00 EDMS 06/13 15:47 Order name: CT Stroke Brain w/o Contrast; Complete Time: 16:31 rn 06/13 15:47 Order name: Stroke CXR 1 View; Complete Time: 17:18 rn 06/13 15:58 Order name: Head Angio CT; Complete Time: 17:00 rn 06/13 15:58 Order name: Neck Angio CT; Complete Time: 17:00 rn 06/13 15:47 Order name: EKG; Complete Time: 15:47 rn 06/13 15:47 Order name: Accucheck; Complete Time: 16:21 rn 06/13 15:47 Order name: Cardiac monitoring; Complete Time: 16:21 rn 06/13 15:47 Order name: EKG - Nurse/Tech; Complete Time: 16:21 rn 06/13 15:47 Order name: IV Saline Lock; Complete Time: 16:00 rn 06/13 15:47 Order name: Labs collected and sent; Complete Time: 16:00 rn 06/13 15:47 Order name: O2 Per Protocol; Complete Time: 15:48 rn 06/13 15:47 Order name: O2 Sat Monitoring; Complete Time: 15:48 rn 06/13 15:47 Order name: Stroke Swallow Screen; Complete Time: 16:21 rn EC:45 Rate is 79 beats/min. Rhythm is regular. QRS Stella is Normal. QRS interval is normal. QT rn interval is prolonged at 513 msec. No Q waves. T waves are Normal. No ST changes noted. Clinical impression: NSR w/ Non-specific ST/T Changes. Interpreted by me. Reviewed by me. Administered Medications: 17:04 Drug: NS 0.9% IV 1000 ml IV at 1000 ml once Route: IV; Rate: 1000 ml; Site: right ld1 antecubital; Point of Care Testing: Blood Glucose: 15:50 Blood Glucose: 145 mg/dL; ld1 Ranges: Critical Glucose Levels:Adult <50 mg/dl or >400 mg/dl <40 mg/dl or >180 mg/dl Disposition Summary: 06/13/23 17:38 Discharge Ordered Notes: Location: Home rn Problem: new rn Symptoms: have improved rn Condition: Stable rn Diagnosis - Altered mental status, unspecified rn - Hypo-osmolality and hyponatremia rn - Dehydration rn Followup: rn - With: Private Physician - When: Tomorrow - Reason: Recheck today's complaints, Re-evaluation by your physician Discharge Instructions: - Discharge Summary Sheet rn - Confusion rn - Dehydration, Adult rn - Hyponatremia rn Forms: - Medication Reconciliation Form rn - Thank You Letter rn - Antibiotic harness worker - Prescription Opioid Use rn - Patient Portal Instructions rn - Leadership Thank You Letter rn NIH Stroke Scale - NIH Stroke Score Date: 06/13/2023 Time: 16:00 Total Score = 0 10. Dysarthria (speech clarity - read or repeat words) - 0(Normal) 11. Extinction and Inattention (visual/tactile/auditory/spatial/personal) - 0(No abnormality) 1a. Level of Consciousness (LOC) - 0(Alert) 1b. Level of Consciousness (LOC) (Month \T\ Age) - 0(Both) 1c. LOC Commands (Open \T\ Closes Eyes/Director Of Sustainability) - 0(Both) 2. Best Gaze (Lateral Gaze Paresis) - 0(Normal) 3. Visual Field Loss - 0(No visual loss) 4. Facial Palsy - 0(Normal) 5a. Left Arm: Motor (10-second hold) - 0(No drift) 5b. Right Arm: Motor (10-second hold) - 0(No drift) 6a. Left Leg: Motor (5-second hold - always test supine) - 0(No drift) 6b. Right Leg: Motor (5-second hold - always test supine) - 0(No drift) 7. Limb Ataxia (finger/nose \T\ heel/montoya - test with eyes open) - 0(Absent) 8. Sensory Loss (pinprick arms/legs/face) - 0(Normal) 9. Best Language: Aphasia (description/naming/reading) - 0(No aphasia) Initials: ld1 NIH Stroke Scale - NIH Stroke Score Date: 06/13/2023 Time: 16:38 Total Score = 0 10. Dysarthria (speech clarity - read or repeat words) - 0(Normal) 11. Extinction and Inattention (visual/tactile/auditory/spatial/personal) - 0(No abnormality) 1a. Level of Consciousness (LOC) - 0(Alert) 1b. Level of Consciousness (LOC) (Month \T\ Age) - 0(Both) 1c. LOC Commands (Open \T\ Closes Eyes/Director Of Sustainability) - 0(Both) 2. Best Gaze (Lateral Gaze Paresis) - 0(Normal) 3. Visual Field Loss - 0(No visual loss) 4. Facial Palsy - 0(Normal) 5a. Left Arm: Motor (10-second hold) - 0(No drift) 5b. Right Arm: Motor (10-second hold) - 0(No drift) 6a. Left Leg: Motor (5-second hold - always test supine) - 0(No drift) 6b. Right Leg: Motor (5-second hold - always test supine) - 0(No drift) 7. Limb Ataxia (finger/nose \T\ heel/montoya - test with eyes open) - 0(Absent) 8. Sensory Loss (pinprick arms/legs/face) - 0(Normal) 9. Best Language: Aphasia (description/naming/reading) - 0(No aphasia) Initials: rn Signatures: Dispatcher [employer] EDTimothy Melgoza MD MD rn Sims, Lauren, RN RN ld1 Sonya Gonzalez RN RN cm10 Corrections: (The following items were deleted from the chart) 16:01 16:01 PMHx: Alcohol dependence; ld1 ld1 16:39 16:04 Radiologist reports: No acute findings and CT head without contrast per russ Licea rn
[2023-06-13 19:12] VITALS: TEMP 97.9
[2023-06-13 19:15] VITALS: BP 146/99; O2SAT 100
--- NOTE | 2023-06-14 13:04 | EKG ---
Test Date: 2023-06-13 Test Time: 16:18:11 Rounding And Backing Machine Operator: TAMANNA MEASUREMENT RESULTS: Intervals: Rate: 79 WV: 166 QRSD: 86 QT: 448 QTc: 513 [place]: P: 61 WV: 166 QRS: 25 T: 37 INTERPRETIVE STATEMENTS: Normal sinus rhythm Prolonged QT Abnormal ECG Compared to ECG 05/23/2022 16:35:58 Prolonged QT interval now present Atrial premature complex(es) no longer present Electronically Signed On 06-14-23 13:03:42 [facility] by Vj Saenz
== END 2023-06-13 18:05 | disposition home or self-care (01) ==
LOC: ER 15:43
DX: R41.82 Altered mental status, unspecified (principal); E87.1 Hypo-osmolality and hyponatremia; E86.0 Dehydration; I10 Essential (primary) hypertension
CPT/HCPCS: 93005; 85025; 81001; 80048; 36415; 85610; 82565; 82947; 85730; 84484; 80307; 70496; 70498; 70450; 71045; 99285; Q9967; J7030